=== PATIENT | female | born 1935 | race Caucasian/White ===

== ENCOUNTER 2022-08-23 06:41 | Inpatient (IN) ==
[2022-08-23] MEDS ORDERED: ONDANSETRON 4 MG/2 ML VIAL IV ONE ×2 (06:45→13:31)
[2022-08-23] MEDS ORDERED: fentaNYL 100 MCG/2 ML VIAL IV ONE ×3 (06:45→18:30)
--- NOTE | 2022-08-23 06:50 | Emergency Department Note ---
HPI <Jeanmarie Denney MD - Last Filed: 08/23/22 06:57> General Chief complaint: Fall Stated complaint: FALL Time Seen by Provider: 08/23/22 06:44 Source: patient and EMS Mode of arrival: ambulatory History of Present Illness HPI Narrative: Narrative: 87-year-old female brought in by EMS after having falling at home. She states she got caught in cables and tripped, landing on her left side. She denied any head strike or loss of consciousness. Patient presents with extreme pain to the right hip. Patient's past medical history is positive for COPD, hypertension and status post two-vessel CABG. Related Data Home Medications Medication Instructions Recorded Confirmed albuterol sulfate 2.5 mg/3 mL 2.5 mg IH TID 02/03/17 02/03/17 (0.083 %) solution for nebulization budesonide 0.5 mg/2 mL suspension 0.5 mg NEB Q12 02/03/17 02/03/17 for nebulization furosemide 20 mg tablet (Lasix) 20 mg PO DAILY 02/03/17 02/03/17 metoprolol succinate 25 mg 25 mg PO BID 02/03/17 02/03/17 tablet,extended release 24 hr omeprazole 20 mg tablet,delayed 20 mg PO DAILY 02/03/17 02/03/17 release potassium chloride 10 mEq 10 meq PO DAILY 02/03/17 02/03/17 tablet,extended release (Klor-Con) prednisolone acetate 1 % eye 1 gtt DAILY 02/03/17 02/03/17 drops,suspension Allergies Allergy/AdvReac Type Severity Reaction Status Date / Time Ether Allergy Unknown Unknown Verified 12/14/19 17:30 Review of Systems <Jeanmarie Denney MD - Last Filed: 08/23/22 06:57> ROS ROS Narrative: Narrative: All systems ED: reviewed and negative except as stated. PFSH <Jeanmarie Denney MD - Last Filed: 08/23/22 06:57> Narrative Patient History Narrative: Narrative: Medical/Surgical/Family History All Active Problems (Updated 12/14/19 @ 18:05 by ARIE Catalan) Chest pain (Acute) Atypical chest pain (Acute) Stable angina (Acute) Local reaction to bee sting (Acute) Social History Smoking Status: Former smoker Exam <Jeanmarie Denney MD - Last Filed: 08/23/22 06:57> Narrative Narrative: Narrative: General: Alert oriented x3, answers questions cogently. Pulmonary: Clear to auscultation equal bilaterally without rales rhonchi or wheezes. CV: Regular rate and rhythm without murmurs clicks rubs or gallops. Ortho: No external rotation or foreshortening but very tender to compression of the right hip. Otherwise all extremities have full range of motion without deformity neck is nontender both lateral and dorsal compression and ribs are nontender as well. Head appears to be atraumatic Course <Jeanmarie Denney MD - Last Filed: 08/23/22 06:57> Vital Signs Vital signs: Vital Signs Temperature 98.0 F 08/23/22 06:41 Pulse Rate 65 08/23/22 06:41 Respiratory Rate 22 08/23/22 06:41 Blood Pressure 153/43 08/23/22 06:41 Pulse Oximetry (%) 93 08/23/22 06:41 Oxygen Delivery Method Room Air 08/23/22 06:41 Temperature 98.0 F 08/23/22 06:41 Pulse Rate 67 08/23/22 11:16 Respiratory Rate 22 08/23/22 06:41 Blood Pressure 107/38 08/23/22 11:16 Pulse Oximetry (%) 100 08/23/22 11:16 Oxygen Delivery Method Room Air 08/23/22 06:41 <Dakota Amaya MD - Last Filed: 08/23/22 12:41> Consultations Consultation #1: I spoke to the orthopedic surgeon, Dr. Stratton. He asked me to get the hospitalist to admit but agreed to perform the surgery. Time: 12:33 Consultation #2: I spoke to the hospitalist, Dr. Horvath. He agreed to admit Time: 12:40 Vital Signs Vital signs: Vital Signs Temperature 98.0 F 08/23/22 06:41 Pulse Rate 65 08/23/22 06:41 Respiratory Rate 22 08/23/22 06:41 Blood Pressure 153/43 08/23/22 06:41 Pulse Oximetry (%) 93 08/23/22 06:41 Oxygen Delivery Method Room Air 08/23/22 06:41 Temperature 98.0 F 08/23/22 06:41 Pulse Rate 67 08/23/22 11:16 Respiratory Rate 22 08/23/22 06:41 Blood Pressure 107/38 08/23/22 11:16 Pulse Oximetry (%) 100 08/23/22 11:16 Oxygen Delivery Method Room Air 08/23/22 06:41 MDM <Jeanmarie Denney MD - Last Filed: 08/23/22 06:57> MDM Narrative Medical decision making narrative: Narrative: X-rays will be obtained and patient worked up for what appears to be a fractured femur. Patient was turned over to my colleague at 0700. Sepsis Sepsis Identified: No Lab Data 08/23/22 08:10 Labs: Lab Results 08/23/22 08/23/22 Range/Units 07:41 08:10 WBC 24.5 H (4.5-11.0) K/mcL RBC 4.72 (3.59-5.38) M/mcL Hgb 14.3 (11.2-15.7) g/dL Hct 49.1 H (34.1-44.9) % POC Hct 43.0 (36-48) MCV 104.0 H (80.0-100.0) fL MCH 30.3 (26.0-34.0) pg MCHC 29.1 L (31.0-36.0) g/dL RDW 13.2 (11.5-14.5) % Plt Count 254 (140-440) K/mcL MPV 10.5 (8.8-12.5) fL Immature Gran % (Auto) 0.7 H (0.0-0.5) % Neut % (Auto) 85.7 H (38.0-78.0) % Lymph % (Auto) 4.9 L (15.5-49.0) % [place] % (Auto) 8.0 (1.0-12.0) % Eos % (Auto) 0 (0.0-7.0) % Baso % (Auto) 0.7 (0.0-2.0) % Lymph # (Auto) 1.19 L (1.50-4.80) K/mcL [place] # (Auto) 1.95 H (0.10-0.90) K/mcL Eos # (Auto) 0.01 (0.00-0.70) K/mcL Baso # (Auto) 0.18 (0.00-0.30) K/mcL Immature Gran # 0.17 H (0.00-0.05) K/mcl Absolute Neutrophils 21.01 H (1.80-8.00) K/mcL POC Sodium 142 (133-145) POC Potassium 3.7 (3.3-5.1) POC Chloride 105 (96-108) POC Total CO2 26.0 (22-30) POC BUN 20 (6-20) POC Creatinine 0.9 (0.6-1.2) POC Glucose 126 H (70-105) POC WB Ioniz Calcium 1.12 L (1.16-1.32) <Dakota Amaya MD - Last Filed: 08/23/22 12:41> Lab Data Labs: Lab Results 08/23/22 08/23/22 Range/Units 07:41 08:10 WBC 24.5 H (4.5-11.0) K/mcL RBC 4.72 (3.59-5.38) M/mcL Hgb 14.3 (11.2-15.7) g/dL Hct 49.1 H (34.1-44.9) % POC Hct 43.0 (36-48) MCV 104.0 H (80.0-100.0) fL MCH 30.3 (26.0-34.0) pg MCHC 29.1 L (31.0-36.0) g/dL RDW 13.2 (11.5-14.5) % Plt Count 254 (140-440) K/mcL MPV 10.5 (8.8-12.5) fL Immature Gran % (Auto) 0.7 H (0.0-0.5) % Neut % (Auto) 85.7 H (38.0-78.0) % Lymph % (Auto) 4.9 L (15.5-49.0) % [place] % (Auto) 8.0 (1.0-12.0) % Eos % (Auto) 0 (0.0-7.0) % Baso % (Auto) 0.7 (0.0-2.0) % Lymph # (Auto) 1.19 L (1.50-4.80) K/mcL [place] # (Auto) 1.95 H (0.10-0.90) K/mcL Eos # (Auto) 0.01 (0.00-0.70) K/mcL Baso # (Auto) 0.18 (0.00-0.30) K/mcL Immature Gran # 0.17 H (0.00-0.05) K/mcl Absolute Neutrophils 21.01 H (1.80-8.00) K/mcL POC Sodium 142 (133-145) POC Potassium 3.7 (3.3-5.1) POC Chloride 105 (96-108) POC Total CO2 26.0 (22-30) POC BUN 20 (6-20) POC Creatinine 0.9 (0.6-1.2) POC Glucose 126 H (70-105) POC WB Ioniz Calcium 1.12 L (1.16-1.32) Radiology Data Radiology results reviewed: Yes I reviewed the patient's radiology results. Discharge Plan Patient/Caregiver Discharge Instructions Pt seen by BUSINESS SUPPORT/PA only: No Patient Disposition: Home, Self-Care Condition: Undetermined Follow up with: Gustavo Tinoco DO [Primary Care Provider] - Prescriptions: No Action albuterol sulfate 2.5 MG/3 ML Vial.Neb 2.5 mg IH TID potassium chloride [Klor-Con 10] 10 MEQ Tablet.Er 10 meq PO DAILY prednisolone acetate 1 GTT Bottle 1 gtt OD DAILY budesonide 0.5 MG/2 ML Ampul.Neb 0.5 mg NEB Q12 furosemide [Lasix] 20 MG Tablet 20 mg PO DAILY metoprolol succinate 25 MG Tab.Xl.24h 25 mg PO BID omeprazole 20 MG Tablet.Dr 20 mg PO DAILY
[2022-08-23 07:45] LABS: POC Calcium, Ionized 1.12 (1.16-1.32); POC Creatinine 0.9 (0.6-1.2); POC Potassium 3.7 (3.3-5.1)
[2022-08-23 08:52] LABS: Basophils # (Auto) 0.18 K/mcL (0.00-0.30); Basophils % (Auto) 0.7 % (0.0-2.0); Eosinophils # (Auto) 0.01 K/mcL (0.00-0.70); Eosinophils % (Auto) 0 % (0.0-7.0); Hematocrit 49.1 % (34.1-44.9); Hemoglobin 14.3 g/dL (11.2-15.7); Lymphocytes # (Auto) 1.19 K/mcL (1.50-4.80); Lymphocytes % (Auto) 4.9 % (15.5-49.0); Mean Corpuscular HGB Conc 29.1 g/dL (31.0-36.0); Mean Platelet Volume 10.5 fL (8.8-12.5); Monocytes # (Auto) 1.95 K/mcL (0.10-0.90); Neutrophils % (Auto) 85.7 % (38.0-78.0); Platelet Count 254 K/mcL (140-440); RBC 4.72 M/mcL (3.59-5.38); Red Cell Distribution Width 13.2 % (11.5-14.5); WBC 24.5 K/mcL (4.5-11.0)
--- NOTE | 2022-08-23 09:45 | XRay Report ---
CLINICAL INFORMATION: Trauma COMPARISON: None. FINDINGS: Sacroiliac and hip joints are normal in width and alignment without arthritic change. Mildly comminuted basicervical fracture of the right femoral neck appreciated with marked coxa vara angulation. The distal fragment is displaced anteriorly and superiorly. Soft tissue swelling over the fracture site. IMPRESSION: Mildly comminuted basicervical fracture of the right hip. Marked angulation Interpreted and Authenticated by: Obey Mar 08/23/22
[2022-08-23] MEDS ORDERED: morphine 4 MG/ML VIAL IV ONE ×2 (11:03→13:06)
--- NOTE | 2022-08-23 12:15 | Cat Scan Report ---
CLINICAL INFORMATION: Trauma COMPARISON: None. TECHNIQUE: 0.625 mm helical slices were obtained from the skull base through the superior T2 end plate. Following reconstruction, 2.5 mm sagittal, coronal and axial reformations , with and without disc space angling, were processed. The exam was reviewed at bone and soft tissue windows. The exam was performed using radiation dose optimization techniques including, but not limited to, automated exposure control, adjustment of the mA and/or kV according to patient size and use of iterative reconstruction technique. FINDINGS: Sagittal and coronal reformatted images show the cervical spine is anatomically aligned. There is no fracture or other osseous abnormality. The cervical cord is normal in contour and caliber without focal lesion. The soft tissues are significant for scattered thyroid nodules developed multiple adenomas. Moderate calcification seen in writing artery bifurcations. Severe bilateral TMJ degeneration noted. There is moderate left mastoiditis with opacification of the left mastoid air cells. At C2-3, mild broad disc protrusion mildly impinges the thecal sac At C3-4, mild broad disc protrusion mildly impinges the thecal sac results in moderate right recess narrowing possible exiting right C4 nerve root impingement. At C4-5, mild broad disc protrusion facet arthropathy result in mild central canal and moderate right IV foraminal narrowing with exiting right C5 nerve root impingement At C5-6, moderate broad disc spur complex results in moderate central canal and mild left IV foraminal narrowing. At C6-7 moderate broad disc protrusion results in mild central canal and moderate bilateral IV foraminal narrowing C7-T1 disc level is normal. IMPRESSION: 1. No fracture or posttraumatic change. 2. Multilevel degeneration. 3. Severe bilateral TMJ degeneration. 4. Mild left mastoiditis Interpreted and Authenticated by: Obey Mar 08/23/22
--- NOTE | 2022-08-23 12:15 | Cat Scan Report ---
CLINICAL INFORMATION: Trauma COMPARISON: None. TECHNIQUE: 2.5 mm helical slices were obtained in the skull base to vertex. Following reconstruction, axial reformatted images were reviewed at bone and parenchymal windows. The exam was performed using radiation dose optimization techniques including, but not limited to, automated exposure control, adjustment of the mA and/or kV according to patient size and use of iterative reconstruction technique. FINDINGS: The ventricles, sulci, fissures, and cisterns are symmetrically enlarged compatible with moderate age-related atrophy. No extra-axial fluid collections are identified. Moderate patchy chronic ischemic changes, in the deep cerebral white matter, are expected for age. There is no hemorrhage, mass effect, or edema. Bone windows show no osseous abnormality. IMPRESSION: Moderate and chronic ischemic changes in the deep cerebral white matter-expected for age. No acute findings Interpreted and Authenticated by: Obey Mar 08/23/22
[2022-08-23] MEDS ORDERED: IBUPROFEN 600 MG TABLET PO PRN (14:09)
[2022-08-23] MEDS ORDERED: ACETAMINOPHEN 325 MG TABLET PO PRN (14:09)
[2022-08-23] MEDS: morphine 4 MG/ML VIAL IV PRN (14:26)
[2022-08-23] MEDS ORDERED: NITROGLYCERIN 0.4 MG TAB.SUBL SL PRN (14:34)
--- NOTE | 2022-08-23 14:40 | Internal Med History&Physical ---
HPI History of Present Illness Patient information: Note initiated : 08/23/22 at 2:35 pm Service Date, if different from initiated Date: [] Patient: Belinda Crum a 87 y/o F admitted on 08/23/22 for FALL Right Hip Fracture. Chief Complaint: Mechanical fall Chief complaint: Mechanical fall History of present illness: Ms. Crum is a 87 year old F with a past medical history significant for CAD, COPD, and osteoporosis who presents to the hospital with a mechanical fall resulting in a mildly communicated cervical fracture of the right hip that was markedly angulated. The patient states that she tripped over some wires at home. She denies any prodromal symptoms. On arrival she was hemodynamically stable and afebrile. Trauma series of imaging was performed. Of note her white blood cell count was elevated at 24,000. Orthopedic surgery were notified. The hospitalist service was asked admit the patient for further management and evaluation. Review of Systems All systems: reviewed and no additional remarkable complaints except as stated Constitutional Constitutional: Present as per HPI EENT Eyes: Present as per HPI; Absent blurry vision Cardiovascular Cardiovascular: Present as per HPI; Absent chest pain, dyspnea, dyspnea on exertion, leg edema or palpatations Respiratory Respiratory: Present as per HPI; Absent cough, dyspnea, dyspnea on exertion, wheezing or stridor Gastrointestinal Gastrointestinal: Present as per HPI; Absent abdominal pain, diarrhea, dysphagia, hematemesis, melena, nausea or vomiting Musculoskeletal Musculoskeletal: Present as per HPI; Absent joint swelling, limited range of motion, muscle cramps, muscle weakness or myalgias Integumentary Integumentary: Present as per HPI; Absent erythema, new lesions, rash or wounds Neurological Neurological: Present as per HPI; Absent abnormal gait, behavioral changes, focal weakness, headache(s), loss of vision, numbness, sensory deficit or syncope Endocrine Endocrine: Absent change in body appearance, fatigue or heat intolerance Hematologic/Lymphatic Hematologic/Lymphatic: Present as per HPI PFSH PFSH All Active Problems (Updated 08/23/22 @ 12:42 by Dakota Amaya MD) Chest pain (Acute) Atypical chest pain (Acute) Stable angina (Acute) Local reaction to bee sting (Acute) Closed right hip fracture (Acute) Social History smoking status: Former smoker MEDS/ALLERGIES Home Medications and Allergies Home Medications Medication Instructions Recorded Confirmed Type albuterol sulfate 2.5 mg/3 mL 2.5 mg IH TID 02/03/17 02/03/17 History (0.083 %) solution for nebulization budesonide 0.5 mg/2 mL suspension 0.5 mg NEB Q12 02/03/17 02/03/17 History for nebulization furosemide 20 mg tablet (Lasix) 20 mg PO DAILY 02/03/17 08/23/22 History omeprazole 20 mg tablet,delayed 20 mg PO QAMAC 02/03/17 08/23/22 History release potassium chloride 10 mEq 10 meq PO DAILY 02/03/17 02/03/17 History tablet,extended release (Klor-Con) prednisolone acetate 1 % eye 1 gtt DAILY 02/03/17 08/23/22 History drops,suspension alendronate 70 mg tablet 70 mg PO WEEKLY 08/23/22 08/23/22 History atorvastatin 40 mg tablet 40 mg PO QHS 08/23/22 08/23/22 History ipratropium bromide 42 mcg (0.06 2 spray intranasal TID 08/23/22 08/23/22 History %) nasal spray isosorbide mononitrate 30 mg 30 mg PO QDAY 08/23/22 08/23/22 History tablet,extended release 24 hr metoprolol succinate 25 mg 25 mg PO BID 08/23/22 08/23/22 History tablet,extended release 24 hr nitroglycerin 0.4 mg sublingual 0.4 mg sublingual Q5M PRN angina 08/23/22 08/23/22 History tablet Allergies Allergy/AdvReac Type Severity Reaction Status Date / Time Ether Allergy Unknown Unknown Verified 12/14/19 17:30 EXAM Constitutional Vitals: Temp Pulse Resp BP Pulse Ox O2 Del Method 98.0 F 73 22 113/36 100 Room Air 08/23/22 13:58 08/23/22 13:58 08/23/22 13:58 08/23/22 13:58 08/23/22 13:58 08/23/22 06:41 General appearance: average body habitus Head Head exam: Present atraumatic, normal inspection and normocephalic Eye Eye exam: Present EOMI, normal appearance and PERRL; Absent conjunctival injection ENT ENT exam: Present normal exam; Absent mucous membranes dry Neck Neck exam: Present full ROM; Absent lymphadenopathy Respiratory Respiratory exam: Present normal respiratory exam and CTAB; Absent decreased breath sounds, respiratory distress or wheezes Cardiovascular Cardiovascular exam: Present normal rate and rhythm and RRR; Absent JVD GI/Abdominal GI/Abdominal exam: Present normal bowel sounds and soft; Absent diminished bowel sounds, distended, guarding, mass, rebound or tenderness Neurological Exam Neurological exam: Present alert, CN II-XII intact and oriented X3 Psychiatric Psychiatric exam: Present normal affect and normal mood Skin Skin exam: Present intact and warm; Absent erythema, pallor, petechiae or rash DATA Data Completed and Pending Labs: Labs from last 24 hours 08/23/22 08/23/22 08:10 07:41 WBC 24.5 H RBC 4.72 Hgb 14.3 Hct 49.1 H POC Hct 43.0 MCV 104.0 H MCH 30.3 MCHC 29.1 L RDW 13.2 Plt Count 254 MPV 10.5 Immature Gran % (Auto) 0.7 H Neut % (Auto) 85.7 H Lymph % (Auto) 4.9 L [place] % (Auto) 8.0 Eos % (Auto) 0 Baso % (Auto) 0.7 Lymph # (Auto) 1.19 L [place] # (Auto) 1.95 H Eos # (Auto) 0.01 Baso # (Auto) 0.18 Immature Gran # 0.17 H Absolute Neutrophils 21.01 H POC Sodium 142 POC Potassium 3.7 POC Chloride 105 POC Total CO2 26.0 POC BUN 20 POC Creatinine 0.9 POC Glucose 126 H POC WB Ioniz Calcium 1.12 L A/P Assessment and plan (1) Closed right hip fracture: Status: Acute Qualifiers: Encounter type: initial encounter Qualified Code(s): S72.001A - Fracture of unspecified part of neck of right femur, initial encounter for closed fracture Narrative A/P Narrative: The patient will be seen by orthopedic surgery and evaluated for surgical intervention. Medical comanagement will be performed via the hospital service. Medication reconciliation will be performed. We will continue her home inhalers. We will continue home metoprolol and atorvastatin in terms of her cardiac medications however hold home Lasix. Her white blood cell count is elevated at 24,000 and is unclear if this is the setting of hemoconcentration. She will get an empiric dose of ceftriaxone and will follow up on her chest x- ray and urine culture. Time Spent With Patient Time: Total time spent is greater than 50% in coordination of care (as documented) at patient's floor/unit and/or counseling patient: Subsequent: Total time with patient: 50 - 65 Minutes Critical Care Time: No
[2022-08-23] MEDS: 0.9 % SODIUM CHLORIDE 10 ML SYRINGE IV SCH ×2 (15:25→21:05)
[2022-08-23] MEDS: cefTRIAXone 1 GM VIAL IV SCH (15:51)
[2022-08-23] MEDS: ALBUTEROL SULFATE 2.5 MG/3 ML NEBULIZER IH SCH ×2 (15:51→21:17)
[2022-08-23] MEDS: IPRATROPIUM 0.06% NASAL SPRAY BOTTLE 30ML NAS SCH ×2 (15:53→22:08)
--- NOTE | 2022-08-23 16:12 | XRay Report ---
CLINICAL INFORMATION: Trauma COMPARISON: None. TECHNIQUE: Portable FINDINGS: Massive hiatal hernia noted. The heart is moderately enlarged. Remaining mediastinum is normal. Pulmonary vessels are mildly distended and there is mild peribronchial vascular edema. Small bilateral pleural effusions noted. No fracture or other posttraumatic change evident. IMPRESSION: No posttraumatic change. Mild CHF or volume overload Massive hiatal hernia Interpreted and Authenticated by: Obey Mar 08/23/22
[2022-08-23] MEDS ORDERED: ceFAZolin 2 GM in DEXTROSE 5% IN WATER 50 ML IV SCH ×2 (16:45→20:00)
--- NOTE | 2022-08-23 17:16 | Orthopedic Progress Note ---
SUBJECTIVE Subjective Patient information: Note initiated : 08/23/22 at 5:15 pm Service Date, if different from initiated Date: [] Patient: Belinda Crum 87 y/o F admitted on 08/23/22 for FALL Right Hip Fracture. Chief Complaint: [] Constitutional Vitals: Vital Signs Temp Pulse Resp BP Pulse Ox O2 Del Method O2 Flow Rate 99.1 F H 78 18 140/57 96 Nasal Cannula 1.5 08/23/22 16:00 08/23/22 16:00 08/23/22 16:00 08/23/22 16:00 08/23/22 16:00 08/23/22 16:00 08/23/22 16:00 Period Temp Pulse Resp BP Sys/Berg Pulse Ox O2 Del Method O2 Flow Rate Last 24 Hr 98.0 F-99.1 F 63-82 18-22 82-183/32-78 86-100 Nasal Cannula- Room Air 1.5-1.5 Intake and Output 08/23/22 08/23/22 08/23/22 03:59 11:59 19:59 Weight 140 lb 140 lb Patient Weight 08/24/22 03:59 Weight 140 lb Intake & Output: Intake & Output 08/23/22 08/23/22 08/23/22 03:59 11:59 19:59 Weight 140 lb 140 lb OBJ DATA Labs 08/23/22 08:10 Labs: Abnormal Lab Results 08/23/22 08/23/22 08:10 07:41 WBC 24.5 H Hct 49.1 H MCV 104.0 H MCHC 29.1 L Immature Gran % (Auto) 0.7 H Neut % (Auto) 85.7 H Lymph % (Auto) 4.9 L Lymph # (Auto) 1.19 L [place] # (Auto) 1.95 H Immature Gran # 0.17 H Absolute Neutrophils 21.01 H POC Glucose 126 H POC WB Ioniz Calcium 1.12 L Meds: Medications Acetaminophen (Acetaminophen 325 Mg Tablet) 650 mg PO Q6HP PRN; Protocol PRN Reason: Per Pain Protocol/Fever > 101 Albuterol Sulfate (Albuterol Sulfate 2.5 Mg/3 Ml Nebulizer) 2.5 mg IH TID RINA Last Admin: 08/23/22 15:51 Dose: 2.5 mg Alendronate Sodium (Alendronate Sodium 70 Mg Tablet) 70 mg PO Cullen@0730 COUNTS INCLUDE 234 BEDS AT THE [facility] Atorvastatin Calcium (Atorvastatin 40 Mg Tablet) 40 mg PO QHS COUNTS INCLUDE 234 BEDS AT THE [facility] Budesonide (Budesonide 0.5 Mg/2 Ml Ampul.Neb) 0.5 mg NEB Q12 COUNTS INCLUDE 234 BEDS AT THE [facility] Ceftriaxone Sodium (Ceftriaxone 1 Gm Vial) 1 gm IV Q24H COUNTS INCLUDE 234 BEDS AT THE [facility]; Protocol Last Admin: 08/23/22 15:51 Dose: 1 gm Docusate Sodium (Docusate Sodium 100 Mg Capsule) 100 mg PO BID COUNTS INCLUDE 234 BEDS AT THE [facility] Enoxaparin Sodium (Enoxaparin 40 Mg/0.4 Ml Syringe) 40 mg SQ DAILY COUNTS INCLUDE 234 BEDS AT THE [facility] Cefazolin Sodium 2 gm/ (Dextrose) 50 mls @ 100 mls/hr IV PREOP COUNTS INCLUDE 234 BEDS AT THE [facility]; Protocol Stop: 08/23/22 21:00 Ibuprofen (Ibuprofen 600 Mg Tablet) 600 mg PO QIDP PRN; Protocol PRN Reason: Per Pain Protocol/Fever > 101 Ipratropium [place] (Ipratropium 0.06% Nasal [place] Bottle 30ml) 2 spray MIGUEL TID COUNTS INCLUDE 234 BEDS AT THE [facility] Last Admin: 08/23/22 15:53 Dose: Not Given Isosorbide Mononitrate (Isosorbide Mononitrate 30 Mg Tab.Xl.24h) 30 mg PO QDAY COUNTS INCLUDE 234 BEDS AT THE [facility] Metoprolol Succinate (Metoprolol Succinate 25 Mg Tab.Xl.24h) 25 mg PO BID COUNTS INCLUDE 234 BEDS AT THE [facility] Morphine Sulfate (Morphine 4 Mg/Ml Vial) 4 mg IV Q4HP PRN; Protocol PRN Reason: Per Pain Protocol Last Admin: 08/23/22 14:26 Dose: 4 mg Nitroglycerin (Nitroglycerin 0.4 Mg Tab.Subl) 0.4 mg SL Q5M PRN PRN Reason: angina Omeprazole (Omeprazole 20 Mg Capsule) 20 mg PO ACB COUNTS INCLUDE 234 BEDS AT THE [facility] Ondansetron HCl (Ondansetron 4 Mg/2 Ml Vial) 4 mg IV Q6HP PRN PRN Reason: Nausea And Vomiting Oxycodone HCl (Oxycodone Hcl 5 Mg Tablet) 5 mg PO Q4HP PRN; Protocol PRN Reason: Per Pain Protocol Prednisolone Acetate (Prednisolone 1% Ophth Drops 1ml Bottle) 1 gtt OD DAILY COUNTS INCLUDE 234 BEDS AT THE [facility] Senna (Sennosides 1 Tablet) 2 tab PO HS COUNTS INCLUDE 234 BEDS AT THE [facility] Sodium Chloride (0.9 % Sodium Chloride 10 Ml Syringe) 10 ml IV Q8 COUNTS INCLUDE 234 BEDS AT THE [facility] Last Admin: 08/23/22 15:25 Dose: 10 ml A/P Assessment and plan (1) Closed right hip fracture: Assessment and plan: diagnosis is right hip fracture. Discussed with family and patient of the diagnosis and treatment options. Elected to proceed with operative fixation of right hip fracture. Status: Acute Qualifiers: Encounter type: initial encounter Qualified Code(s): S72.001A - Fracture of unspecified part of neck of right femur, initial encounter for closed fracture Time Spent With Patient Time: Total time spent is greater than 50% in coordination of care (as documented) at patient's floor/unit and/or counseling patient:
[2022-08-23] MEDS ORDERED: PROPOFOL 200 MG/20 ML VIAL IV ONE (18:30)
[2022-08-23] MEDS ORDERED: MAGNESIUM SULFATE 2 GM/50 ML BAG IV ONE (18:30)
[2022-08-23] MEDS ORDERED: LIDOCAINE HCL/PF 100 MG/5 ML SYRINGE IV ONE (18:30)
[2022-08-23] MEDS ORDERED: ROPIVACAINE HCL/PF 20 ML VIAL IJ ONE (18:30)
[2022-08-23] MEDS ORDERED: KETAMINE 50 MG/ML Syringe (ANEST) IV ONE (18:30)
[2022-08-23] MEDS ORDERED: GLYCOPYRROLATE 0.2 MG/ML VIAL IV ONE (18:30)
[2022-08-23] MEDS ORDERED: HYDROmorphone 1 MG/ML SYRINGE ONE (18:30)
[2022-08-23] MEDS ORDERED: ONDANSETRON 4 MG/2 ML VIAL ONE (18:30)
[2022-08-23] MEDS ORDERED: DEXAMETHASONE 10 MG/ML VIAL ONE (18:30)
[2022-08-23] MEDS ORDERED: TRANEXAMIC ACID 1,000 MG/10 ML VIAL ONE (18:30)
[2022-08-23] MEDS ORDERED: PHENYLephrine 1 MG/10 ML SYRINGE (ANEST) ONE (18:30)
[2022-08-23] MEDS ORDERED: TRANEXAMIC ACID 1,000 MG/10 ML VIAL IV ONE (19:46)
[2022-08-23] MEDS ORDERED: BENZOCAINE/MENTHOL 1 LOZENGE PO PRN ×2 (19:46→20:16)
[2022-08-23] MEDS ORDERED: oxyCODONE HCL 5 MG TABLET PO PRN (19:46)
--- NOTE | 2022-08-23 19:46 | Brief Operative Note ---
Brief Operative Note Date of procedure: 08/23/22 Pre-op diagnosis: right basicervicle hip fracture Post-op diagnosis: other (right reverse oblique intertrochanteric hip fracture) Procedure: operative fixation right peritrochanteric femur fracture Grafts/Implants: Yes Anesthesia: GETA Findings: reverse oblique intertrochanteric femur fracture Complications: none Surgeon: Cecelia Stratton [employer] Supervisor: Grady Tirado Estimated blood loss (cc): 100 Tourniquet Time (Minutes): 0 Specimens Removed/Pathology: none sent Condition: stable Disposition: PACU
[2022-08-23] MEDS: ACETAMINOPHEN 500 MG TABLET PO SCH (20:13)
[2022-08-23] MEDS ORDERED: LABETALOL 5 MG/ML ML IV PRN (20:16)
[2022-08-23] MEDS ORDERED: LACTATED RINGERS 250 ML IV PRN (20:16)
[2022-08-23] MEDS ORDERED: ACETAMINOPHEN 1,000 MG/100 ML BAG IV ONE (20:16)
[2022-08-23] MEDS ORDERED: IPRATROPIUM/ALBUTEROL 3 ML AMPUL.NEB NEB PRN (20:16)
[2022-08-23] MEDS ORDERED: METOPROLOL TARTRATE 5 MG/5 ML VIAL IV PRN (20:16)
[2022-08-23] MEDS ORDERED: NALOXONE HCL 0.4 MG/ML VIAL IV PRN (20:16)
[2022-08-23] MEDS ORDERED: fentaNYL 100 MCG/2 ML VIAL IV PRN (20:16)
[2022-08-23] MEDS ORDERED: METHOCARBAMOL 1,000 MG/10 ML VIAL IV PRN (20:16)
[2022-08-23] MEDS ORDERED: LACTATED RINGERS 1,000 ML IV SCH (20:30)
[2022-08-23] MEDS: BUDESONIDE 0.5 MG/2 ML AMPUL.NEB NEB SCH (21:17)
[2022-08-23] MEDS: LACTATED RINGERS 1,000 ML IV SCH (21:38)
[2022-08-23] MEDS: prednisoLONE 1% OPHTH DROPS 1ML BOTTLE OD SCH (22:12)
[2022-08-23] MEDS: ATORVASTATIN 40 MG TABLET PO SCH (23:54)
[2022-08-23] MEDS: DOCUSATE SODIUM 100 MG CAPSULE PO SCH (23:54)
[2022-08-23] MEDS: SENNOSIDES 1 TABLET PO SCH (23:55)
[2022-08-23] MEDS: METOPROLOL SUCCINATE 25 MG TAB.XL.24H PO SCH (23:55)
--- NOTE | 2022-08-24 01:59 | XRay Report ---
CLINICAL INFORMATION: ORIF intertrochanteric fracture right hip COMPARISON: Preoperative film 08/23/2022 FINDINGS: Sacroiliac and hip joints again show mild degeneration. The intertrochanteric fracture has been reduced to anatomic alignment and transfixed by gamma nail. Soft tissue swelling or surgical site seen as expected. IMPRESSION: ORIF intertrochanteric fracture right hip-anatomic alignment Interpreted and Authenticated by: Obey Mar 08/24/22
--- NOTE | 2022-08-24 02:00 | XRay Report ---
CLINICAL INFORMATION: Intertrochanteric fracture right hip COMPARISON: None. FINDINGS: Digital images from the OR show intertrochanteric fracture has been reduced to anatomic alignment and transfixed by long gamma nail. Alignment is anatomic. Soft tissue swelling seen over the fracture site. Total fluoroscopy time 1.2 minutes IMPRESSION: ORIF intertrochanteric fracture right hip anatomic alignment Interpreted and Authenticated by: Obey Mar 08/24/22
[2022-08-24] MEDS: ACETAMINOPHEN 500 MG TABLET PO SCH ×3 (03:26→23:28)
[2022-08-24] MEDS: 0.9 % SODIUM CHLORIDE 10 ML SYRINGE IV SCH ×3 (04:49→23:25)
[2022-08-24] MEDS: ONDANSETRON 4 MG/2 ML VIAL IV PRN ×2 (04:49→13:01)
[2022-08-24] MEDS: morphine 4 MG/ML VIAL IV PRN ×4 (04:54→23:45)
[2022-08-24] MEDS: oxyCODONE HCL 5 MG TABLET PO PRN ×3 (07:15→21:53)
[2022-08-24 07:25] LABS: Blood Urea Nitrogen 23 mg/dL (8-23); Calcium 9.4 mg/dL (8.6-10.4); Carbon Dioxide 28 mmol/L (22-30); Chloride 100 mmol/L (96-108); Glomerular Filtration Rate 51; Glucose 172 mg/dL (70-105)
--- NOTE | 2022-08-24 07:26 | Orthopedic Progress Note ---
SUBJECTIVE Subjective Patient information: Note initiated : 08/24/22 at 7:21 am Service Date, if different from initiated Date: [] Patient: Belinda Crum 87 y/o F admitted on 08/23/22 for FALL Right Hip Fracture. Chief Complaint: [Complains of back pain this AM, otherwise no acute events.] Constitutional Vitals: Vital Signs Temp Pulse Resp BP Pulse Ox O2 Del Method O2 Flow Rate 97.7 F 85 24 H 133/65 99 Nasal Cannula 2 08/24/22 03:02 08/24/22 03:02 08/24/22 03:02 08/24/22 03:02 08/24/22 03:02 08/24/22 03:02 08/24/22 03:02 Period Temp Pulse Resp BP Sys/Berg Pulse Ox O2 Del Method O2 Flow Rate Last 24 Hr 97.7 F-99.2 F 48-94 7-24 82-198/32-169 86-100 Nasal Cannula- Room Air 1.5-10 Intake and Output 08/23/22 08/24/22 08/24/22 19:59 03:59 11:59 Intake Total 1250 400 Output Total 1350 150 Balance -100 250 Weight 140 lb 147 lb 8 oz Intake & Output: Intake & Output 08/23/22 08/24/22 08/24/22 19:59 03:59 11:59 Intake Total 1250 400 Output Total 1350 150 Balance -100 250 Weight 140 lb 147 lb 8 oz Intake: IV 50 100 Ancef 2 gm In Dextrose 5% in 50 Water 50 ml @ 100 mls/hr IV PREOP [facility] Rx#:[id number] Oral 200 IV - Manual Only 1200 100 Output: Urine Catheter Amount 1000 150 Uretheral (Le) 500 Estimated Blood Loss 350 Other: Meal yogurt Percent of Meal Consumed 50% Feeding Ability Independent Urine Appearance Clear Clear Uretheral (Le) Clear Clear Urine Color Yellow Yellow Uretheral (Le) Bright Yellow Yellow Additional findings Additional findings: alert and appropriate right hip: dressing is dry and intact. distally shadowing through the dressing. normal appearance OBJ DATA Labs 08/23/22 08:10 08/24/22 06:05 Labs: Abnormal Lab Results 08/23/22 08/23/22 08:10 07:41 WBC 24.5 H Hct 49.1 H MCV 104.0 H MCHC 29.1 L Immature Gran % (Auto) 0.7 H Neut % (Auto) 85.7 H Lymph % (Auto) 4.9 L Lymph # (Auto) 1.19 L [place] # (Auto) 1.95 H Immature Gran # 0.17 H Absolute Neutrophils 21.01 H POC Glucose 126 H POC WB Ioniz Calcium 1.12 L Meds: Medications Acetaminophen (Acetaminophen 500 Mg Tablet) 1,000 mg PO Q8H [facility]; Protocol Last Admin: 08/24/22 03:26 Dose: 1,000 mg Albuterol Sulfate (Albuterol Sulfate 2.5 Mg/3 Ml Nebulizer) 2.5 mg IH TID [facility] Last Admin: 08/23/22 21:17 Dose: 2.5 mg Alendronate Sodium (Alendronate Sodium 70 Mg Tablet) 70 mg PO Cullen@0730 [facility] Atorvastatin Calcium (Atorvastatin 40 Mg Tablet) 40 mg PO QHS [facility] Last Admin: 08/23/22 23:54 Dose: 40 mg Budesonide (Budesonide 0.5 Mg/2 Ml Ampul.Neb) 0.5 mg NEB Q12 [facility] Last Admin: 08/23/22 21:17 Dose: 0.5 mg Ceftriaxone Sodium (Ceftriaxone 1 Gm Vial) 1 gm IV Q24H [facility]; Protocol Last Admin: 08/23/22 15:51 Dose: 1 gm Docusate Sodium (Docusate Sodium 100 Mg Capsule) 100 mg PO BID [facility] Last Admin: 08/23/22 23:54 Dose: 100 mg Enoxaparin Sodium (Enoxaparin 40 Mg/0.4 Ml Syringe) 40 mg SQ DAILY [facility] Lactated Ringer's (Lactated Ringers) 1,000 mls @ 75 mls/hr IV .[id number] [facility] Last Admin: 08/23/22 21:38 Dose: 75 mls/hr Ipratropium [place] (Ipratropium 0.06% Nasal [place] Bottle 30ml) 2 spray MIGUEL TID [facility] Last Admin: 08/23/22 22:08 Dose: Not Given Isosorbide Mononitrate (Isosorbide Mononitrate 30 Mg Tab.Xl.24h) 30 mg PO QDAY [facility] Methocarbamol (Methocarbamol 500 Mg Tablet) 500 mg PO TIDP PRN PRN Reason: Muscle Spasm Metoprolol Succinate (Metoprolol Succinate 25 Mg Tab.Xl.24h) 25 mg PO BID [facility] Last Admin: 08/23/22 23:55 Dose: 25 mg Morphine Sulfate (Morphine 4 Mg/Ml Vial) 4 mg IV Q4HP PRN; Protocol PRN Reason: Per Pain Protocol Last Admin: 08/24/22 04:54 Dose: 4 mg Nitroglycerin (Nitroglycerin 0.4 Mg Tab.Subl) 0.4 mg SL Q5M PRN PRN Reason: angina Omeprazole (Omeprazole 20 Mg Capsule) 20 mg PO ACB [facility] Ondansetron HCl (Ondansetron 4 Mg/2 Ml Vial) 4 mg IV Q6HP PRN PRN Reason: Nausea And Vomiting Last Admin: 08/24/22 04:49 Dose: 4 mg Oxycodone HCl (Oxycodone Hcl 5 Mg Tablet) 5 mg PO Q4HP PRN; Protocol PRN Reason: Per Pain Protocol Prednisolone Acetate (Prednisolone 1% Ophth Drops 1ml Bottle) 1 gtt OD DAILY [facility] Last Admin: 08/23/22 22:12 Dose: 1 gtt Senna (Sennosides 1 Tablet) 2 tab PO HS [facility] Last Admin: 08/23/22 23:55 Dose: 2 tab Sodium Chloride (0.9 % Sodium Chloride 10 Ml Syringe) 10 ml IV Q8 [facility] Last Admin: 08/24/22 04:49 Dose: Not Given Throat Lozenges (Benzocaine/Menthol 1 Lozenge) 1 lozenge PO PRN PRN PRN Reason: Sore Throat A/P Assessment and plan (1) Closed right hip fracture: Assessment and plan: POD 1 s/p operative fixation of right reverse oblique intertrochanteric femur fracture -- 50% weight bearing --PT/OT --oral pain meds --regular diet --back pain- monitor, was in awkward position for most of yesterday. today sit in chair, mobilize --prophy: IS, scd's, lovenox, mobilization --dispo: pending but likely SNF as she lives alone Status: Acute Qualifiers: Encounter type: initial encounter Qualified Code(s): S72.001A - Fracture of unspecified part of neck of right femur, initial encounter for closed fracture Time Spent With Patient Time: Total time spent is greater than 50% in coordination of care (as documented) at patient's floor/unit and/or counseling patient:
[2022-08-24 07:27] LABS: Basophils # (Auto) 0.01 K/mcL (0.00-0.30); Basophils % (Auto) 0.1 % (0.0-2.0); Eosinophils # (Auto) 0 K/mcL (0.00-0.70); Eosinophils % (Auto) 0 % (0.0-7.0); Hematocrit 36.1 % (34.1-44.9); Hemoglobin 11.5 g/dL (11.2-15.7); Lymphocytes # (Auto) 0.62 K/mcL (1.50-4.80); Lymphocytes % (Auto) 4.1 % (15.5-49.0); Mean Corpuscular HGB Conc 31.9 g/dL (31.0-36.0); Mean Platelet Volume 10.8 fL (8.8-12.5); Monocytes # (Auto) 1.58 K/mcL (0.10-0.90); Monocytes % (Auto) 10.6 % (1.0-12.0); Neutrophils % (Auto) 84.7 % (38.0-78.0); Platelet Count 175 K/mcL (140-440); RBC 3.88 M/mcL (3.59-5.38); Red Cell Distribution Width 13.8 % (11.5-14.5); WBC 14.9 K/mcL (4.5-11.0)
--- NOTE | 2022-08-24 07:46 | Consultation ---
DATE OF CONSULTATION: 08/23/2022 REASON FOR CONSULTATION: Right hip fracture. DATE OF CONSULTATION: 08/23/2022 CONSULTING PROVIDER: Dr. Jeanmarie Denney, ER at [facility]. HISTORY OF PRESENT ILLNESS: The patient is an 87-year-old female who presented with a mechanical fall early this morning. She has significant medical history to include coronary artery disease and COPD, osteoporosis, requiring home oxygen use. She was unable to ambulate thereafter and was brought to the emergency department for further evaluation and treatment. She has been admitted to the hospitalist. On evaluation, she complains only of right hip pain. She has an obvious deformity. PAST MEDICAL HISTORY: Significant for COPD, coronary artery disease, osteoporosis. ALLERGIES: ETHER. MEDICATIONS: 1. Metoprolol. 2. Nitroglycerin. 3. Isosorbide mononitrate. 4. Ipratropium. 5. Statin. 6. Alendronate. 7. Prednisolone eyedrops. 8. Potassium. 9. Omeprazole. 10. Furosemide. 11. Albuterol. 12. Another nebulizer treatment. SOCIAL HISTORY: She resides local, lives by herself. She typically can do most things on her own. She has family that lives in [place]. They do accompany her today. REVIEW OF SYSTEMS: Otherwise, negative other than mentioned in HPI. PHYSICAL EXAMINATION: GENERAL: The patient is alert and oriented, interactive and appropriate. She is in no acute distress. VITAL SIGNS: She is afebrile with temperature of 99.1. Heart rate 78, blood pressure 140/57, saturating 96% on 1.5 liters nasal cannula. EXTREMITIES: The patient has isolated injury to the right lower extremity with obvious deformity. She is in an almost lying position with the right hip flexed, internally rotated. The skin is intact. She has no deformity about the knee or ankle joint effusion. The foot is warm and well perfused. She does endorse (crinkling in her toes and foot); however, sensation to gross touch is intact. Able to flex ankle as well as toes. LABORATORY DATA: Shows elevated white count of 24.5 with left shift at 85%. She has H and H of 14.3 and 49.1, platelet count is 254. She has a chemistry with a glucose of 126, creatinine of 0.9. IMAGING: She has plain radiographs of her pelvis and hip, which demonstrates a basicervical displaced femoral neck fracture. ASSESSMENT AND PLAN: The patient is an 87-year-old female who has an acute fall with a displaced right basicervical femoral neck fracture. She has an obvious deformity. I discussed and reviewed this with her daughter as well as her. I discussed options to include operative treatment, which is my recommendation. I discussed what this will entail. I discussed the risks and benefits of surgery as well as expectations properly. I do think this would be better for pain control as well as mobilization and hygiene. I did discuss that these can affect the patient's overall functional level down from what it typically is, which can be relatively difficult to recover from long-term to get back to baseline. They do understand. They want to proceed. Plan will be for operative fixation of right hip fracture. CARMELITA:giselle Job ID: [id number] Doc ID: [id number] Cecelia Stratton MD MTDD
--- NOTE | 2022-08-24 07:49 | Operative Note ---
DATE OF OPERATION: 08/23/2022 PREOPERATIVE DIAGNOSIS: Right basicervical femoral neck fracture. POSTOPERATIVE DIAGNOSIS: Right reverse oblique intertrochanteric femur fracture. PROCEDURE PERFORMED: Operative fixation with cephalomedullary implant of right reverse oblique intertrochanteric femur fracture. SURGEON: Cecelia Stratton MD NEIGHBORHOOD PLANNER: Grady Tirado PA-C. The assistance of the PA was required for the safe and efficient completion of the entire case. The expertise and technical skill of this provider were required throughout the case. The PA assisted with preoperative coordination, intraoperative retraction, limb manipulation, wound closure, dressing application, as well as postoperative documentation and care coordination. ANESTHESIA: General. IV FLUIDS: 800 mL lactated Ringer's. ESTIMATED BLOOD LOSS: Less than 100 mL. ANTIBIOTICS: 2 grams Ancef. IMPLANTS: Marisela long gamma 13 x 380 two distal interlocks, one lag screw. INTRAOPERATIVE COMPLICATIONS: None apparent. PATHOLOGY/LAB: None. INDICATION FOR PROCEDURE: The patient is an 87-year-old female who had a ground level fall at home earlier today. She was brought to the Emergency Department for further evaluation and treatment. I discussed this with her and her family regarding treatment options. I did recommend operative treatment. I think this will improve her pain control, mobility as well as hygiene and improve mobilization long-term. There was risks of the surgery and long-term does have a bit of a sequela as a level of function decreased by 1 level typically speaking. This was all reviewed with them. I discussed the fracture will collapse over time given the construct we used to fix it. They understand this. They wished to proceed with surgery. DESCRIPTION OF PROCEDURE: Patient was met in the preoperative holding area, where site was verified and marked with the patient's input. She was taken to the operating room where she underwent successful general anesthesia. She was placed on the [place] table with padded perineal post. Bilateral feet placed in padded boots. The left lower extremity is in the down position, placed in line traction of the right lower extremity in a bit of internal rotation. Radiographs were taken demonstrating a reverse oblique intertrochanteric femur fracture rather then the basicervical femur fracture. With manipulation of the fracture to get it nearly completely aligned; however, is a bit translated on the lateral with the distal fragment anterior as well as translated medially. Right hip was then prepped and draped in the usual sterile fashion with ChloraPrep. Surgical timeout was performed to verify the patient's identity, correct procedure being performed, and correct extremity being operated on. Everybody was in agreement. Isolated the level of the fracture with a guidewire. We made a small, approximately 4-5 cm incision over the lateral aspect of the femur. Skin was sharply incised. Dissection was taken down to the IT band. The IT band was incised for approximately 3-4 cm. We placed a bone hook over the top of the femur and pulled the distal fragment laterally as well as palpate the fracture line and then reduced it on the anterior posterior direction as well. I did slightly tweaked the rotation as well as traction to reduce the fracture as best as possible. Overall, AP and lateral appeared to be adequate. At this point, gain access to the tip of the greater trochanter with a stab incision 2-1/2 fingerbreadths proximal to the tip of the greater trochanter. A guidewire was placed at the tip of the greater trochanter on the AP and at the anterior middle one-third junction on the lateral. The guidepin was placed. The incision was enlarged down to the tip of the greater trochanter incising the abductors. This was created in line with the fibers with clean 15 blade. Utilizing the curved awl gain access into the canal. This was changed out for a ball-tipped guidewire with a slight bend on the tip. It was placed in the center position distally in the femur, verified both on AP and lateral. This was measured and measured just around 400. I did want to keep this a bit shorter as it was all the way down to the femur. Thus a 380 was selected. Her canal was rather capacious thus elected to proceed with beginning reamer after entry reamer to gain access to canal 13.5 mm. Utilizing 13.5 reamer, reamed it and then 14.5 without significant chatter. The nail was then placed in an atraumatic fashion. It was placed so that the lag screw was going to be in the middle to the inferior aspect of the femoral neck itself. The aiming arm was utilized to place our sleeve and a guidewire on the lateral cortex of the femur. The guidewire position was verified both on AP and lateral was near center-center position. It was then measured and then drilled for 100 mm. This was then removed and initially placed our lag screw and verified both on AP and lateral to be subchondral and it was flush with the lateral cortex. Set screw was placed, backed off 1/4 turn. The construct was then removed. I did place an anti-rotational wire prior to placing the screw and drilling. With the aiming arm removed, AP, lateral completed, demonstrating adequate reduction of the fracture itself, I was happy with the overall construct. Thus, two distal interlocks were then placed via perfect [place] technique. At this point, I irrigated the wounds with IrriSept as well as normal irrigation. The IT band was closed with a #1 Vicryl in an interrupted fashion. Subcutaneous tissue was closed in layered fashion with 2-0 and 3-0 Vicryl and the skin was closed with tony. The distal interlock screws were closed with tony. The hip was then cleaned and dried. We placed a silver dressing on the proximal incisions and Xeroform, 4 x 4 and Medipore tape to secure the dressing. The patient awoke from anesthesia and was transferred to PACU in stable condition. POSTOPERATIVE PLAN: The patient will be admitted back to the floor for postoperative recovery. She will be 50% weightbearing for the first 4-6 weeks. DLW:shawn Job ID: [id number] Doc ID: [id number] Cecelia Stratton MD [facility]
[2022-08-24] MEDS: BUDESONIDE 0.5 MG/2 ML AMPUL.NEB NEB SCH ×2 (08:22→21:12)
[2022-08-24] MEDS: ALBUTEROL SULFATE 2.5 MG/3 ML NEBULIZER IH SCH ×3 (08:22→21:12)
[2022-08-24] MEDS ORDERED: ENOXAPARIN 40 MG/0.4 ML SYRINGE SQ SCH (09:00)
--- NOTE | 2022-08-24 09:03 | Internal Med Progress Note ---
SUBJECTIVE Subjective Patient information: Note initiated : 08/24/22 at 9:01 am Service Date, if different from initiated Date: [] Patient: Belinda Crum 87 y/o F admitted on 08/23/22 for FALL Right Hip Fracture. Chief Complaint: [Fall] Principal diagnosis: Hip fracture Interval history: The patient was resting comfortably in bed and surrounded with family. She is scheduled to go to the OR at this afternoon. Constitutional Vitals: Vital Signs Temp Pulse Resp BP Pulse Ox O2 Del Method O2 Flow Rate 97.7 F 72 24 H 133/65 99 Nasal Cannula 2 08/24/22 03:02 08/24/22 08:38 08/24/22 08:38 08/24/22 03:02 08/24/22 08:38 08/24/22 08:38 08/24/22 08:38 Period Temp Pulse Resp BP Sys/Berg Pulse Ox O2 Del Method O2 Flow Rate Last 24 Hr 97.7 F-99.2 F 48-94 7-24 82-198/34-169 86-100 Nasal Cannula- Room Air 1.5-10 Intake and Output 08/23/22 08/24/22 08/24/22 19:59 03:59 11:59 Intake Total 1250 400 Output Total 1350 150 Balance -100 250 Weight 63.503 kg 66.905 kg Intake & Output: Intake & Output 08/23/22 08/24/22 08/24/22 19:59 03:59 11:59 Intake Total 1250 400 Output Total 1350 150 Balance -100 250 Weight 63.503 kg 66.905 kg Intake: IV 50 100 Ancef 2 gm In Dextrose 5% in 50 Water 50 ml @ 100 mls/hr IV PREOP [facility] Rx#:[id number] Oral 200 IV - Manual Only 1200 100 Output: Urine Catheter Amount 1000 150 Uretheral (Le) 500 Estimated Blood Loss 350 Other: Meal yogurt Percent of Meal Consumed 50% Feeding Ability Independent Urine Appearance Clear Clear Uretheral (Le) Clear Clear Urine Color Yellow Yellow Uretheral (Le) Bright Yellow Yellow Head Head exam: Present atraumatic and normal inspection Eye Eye exam: Present normal appearance ENT ENT exam: Present mucous membranes moist, normal exam and normal external ear exam Neck Neck exam: Present normal inspection Respiratory Respiratory exam: Present normal respiratory exam Cardiovascular Cardiovascular exam: Present normal rate and rhythm GI/Abdominal GI/Abdominal exam: Present normal bowel sounds Back Exam Back exam: Present normal inspection Neurological Exam Neurological exam: Present alert and oriented X3 Skin Skin exam: Present intact and warm OBJ DATA Labs 08/24/22 06:05 08/24/22 06:05 Labs: Abnormal Lab Results 08/24/22 08/24/22 08/23/22 06:05 06:05 08:10 WBC 14.9 H 24.5 H Hct 49.1 H MCV 104.0 H MCHC 29.1 L Immature Gran % (Auto) 0.7 H Neut % (Auto) 84.7 H 85.7 H Lymph % (Auto) 4.1 L 4.9 L Lymph # (Auto) 0.62 L 1.19 L [place] # (Auto) 1.58 H 1.95 H Immature Gran # 0.08 H 0.17 H Absolute Neutrophils 12.65 H 21.01 H Glucose 172 H POC Glucose POC WB Ioniz Calcium 08/23/22 07:41 WBC Hct MCV MCHC Immature Gran % (Auto) Neut % (Auto) Lymph % (Auto) Lymph # (Auto) [place] # (Auto) Immature Gran # Absolute Neutrophils Glucose POC Glucose 126 H POC WB Ioniz Calcium 1.12 L Meds: Medications Acetaminophen (Acetaminophen 500 Mg Tablet) 1,000 mg PO Q8H [facility]; Protocol Last Admin: 08/24/22 03:26 Dose: 1,000 mg Albuterol Sulfate (Albuterol Sulfate 2.5 Mg/3 Ml Nebulizer) 2.5 mg IH TID [facility] Last Admin: 08/24/22 08:22 Dose: 2.5 mg Alendronate Sodium (Alendronate Sodium 70 Mg Tablet) 70 mg PO Cullen@0730 [facility] Atorvastatin Calcium (Atorvastatin 40 Mg Tablet) 40 mg PO QHS [facility] Last Admin: 08/23/22 23:54 Dose: 40 mg Budesonide (Budesonide 0.5 Mg/2 Ml Ampul.Neb) 0.5 mg NEB Q12 [facility] Last Admin: 08/24/22 08:22 Dose: 0.5 mg Ceftriaxone Sodium (Ceftriaxone 1 Gm Vial) 1 gm IV Q24H [facility]; Protocol Last Admin: 08/23/22 15:51 Dose: 1 gm Docusate Sodium (Docusate Sodium 100 Mg Capsule) 100 mg PO BID [facility] Last Admin: 08/23/22 23:54 Dose: 100 mg Enoxaparin Sodium (Enoxaparin 40 Mg/0.4 Ml Syringe) 40 mg SQ DAILY [facility] Lactated Ringer's (Lactated Ringers) 1,000 mls @ 75 mls/hr IV .[id number] [facility] Last Admin: 08/23/22 21:38 Dose: 75 mls/hr Ipratropium [place] (Ipratropium 0.06% Nasal [place] Bottle 30ml) 2 spray MIGUEL TID [facility] Last Admin: 08/23/22 22:08 Dose: Not Given Isosorbide Mononitrate (Isosorbide Mononitrate 30 Mg Tab.Xl.24h) 30 mg PO QDAY [facility] Methocarbamol (Methocarbamol 500 Mg Tablet) 500 mg PO TIDP PRN PRN Reason: Muscle Spasm Metoprolol Succinate (Metoprolol Succinate 25 Mg Tab.Xl.24h) 25 mg PO BID [facility] Last Admin: 08/23/22 23:55 Dose: 25 mg Morphine Sulfate (Morphine 4 Mg/Ml Vial) 4 mg IV Q4HP PRN; Protocol PRN Reason: Per Pain Protocol Last Admin: 08/24/22 04:54 Dose: 4 mg Nitroglycerin (Nitroglycerin 0.4 Mg Tab.Subl) 0.4 mg SL Q5M PRN PRN Reason: angina Omeprazole (Omeprazole 20 Mg Capsule) 20 mg PO ACB [facility] Ondansetron HCl (Ondansetron 4 Mg/2 Ml Vial) 4 mg IV Q6HP PRN PRN Reason: Nausea And Vomiting Last Admin: 08/24/22 04:49 Dose: 4 mg Oxycodone HCl (Oxycodone Hcl 5 Mg Tablet) 5 mg PO Q4HP PRN; Protocol PRN Reason: Per Pain Protocol Last Admin: 08/24/22 07:15 Dose: 5 mg Prednisolone Acetate (Prednisolone 1% Ophth Drops 1ml Bottle) 1 gtt OD DAILY [facility] Last Admin: 08/23/22 22:12 Dose: 1 gtt Senna (Sennosides 1 Tablet) 2 tab PO HS [facility] Last Admin: 08/23/22 23:55 Dose: 2 tab Sodium Chloride (0.9 % Sodium Chloride 10 Ml Syringe) 10 ml IV Q8 [facility] Last Admin: 08/24/22 04:49 Dose: Not Given Throat Lozenges (Benzocaine/Menthol 1 Lozenge) 1 lozenge PO PRN PRN PRN Reason: Sore Throat A/P Assessment and plan (1) Closed right hip fracture: Status: Acute Qualifiers: Encounter type: initial encounter Qualified Code(s): S72.001A - Fract ure of unspecified part of neck of right femur, initial encounter for closed fracture Narrative A/P Narrative: The patient will be seen by orthopedic surgery and evaluated for surgical intervention. Medical comanagement will be performed via the hospital service. Medication reconciliation will be performed. We will continue her home inhalers. We will continue home metoprolol and atorvastatin in terms of her cardiac medications however hold home Lasix. Her white blood cell count is elevated at 24,000 and is unclear if this is the setting of hemoconcentration. She will get an empiric dose of ceftriaxone and will follow up on her chest x- ray and urine culture. 08/24: The patient will be scheduled for OR this afternoon. Postop care per orthopedic surgery. She will be assessed by PT/OT regarding disposition. Time Spent With Patient Time: Total time spent is greater than 50% in coordination of care (as documented) at patient's floor/unit and/or counseling patient: Subsequent: Total time with patient: 25 - 34 minutes Critical Care Time: No QUALITY VTE Deep Vein Thrombosis/Pulmonary Embolism Present on Admission: No
[2022-08-24] MEDS: cefTRIAXone 1 GM VIAL IV SCH (09:07)
[2022-08-24] MEDS: OMEPRAZOLE 20 MG CAPSULE PO SCH (09:07)
[2022-08-24] MEDS: METOPROLOL SUCCINATE 25 MG TAB.XL.24H PO SCH ×2 (09:54→21:55)
[2022-08-24] MEDS: ISOSORBIDE MONONITRATE 30 MG TAB.XL.24H PO SCH (10:15)
[2022-08-24] MEDS: DOCUSATE SODIUM 100 MG CAPSULE PO SCH ×2 (10:18→21:53)
[2022-08-24] MEDS: METHOCARBAMOL 500 MG TABLET PO PRN (11:42)
[2022-08-24] MEDS: IPRATROPIUM 0.06% NASAL SPRAY BOTTLE 30ML NAS SCH ×2 (12:01→17:27)
[2022-08-24] MEDS: LACTATED RINGERS 1,000 ML IV SCH ×2 (12:02→16:15)
[2022-08-24] MEDS: prednisoLONE 1% OPHTH DROPS 1ML BOTTLE OD SCH (12:40)
[2022-08-24] MEDS: SENNOSIDES 1 TABLET PO SCH (21:54)
[2022-08-24] MEDS: ATORVASTATIN 40 MG TABLET PO SCH (21:55)
[2022-08-24] MEDS: ENOXAPARIN 40 MG/0.4 ML SYRINGE SQ SCH (23:28)
[2022-08-25] MEDS: LACTATED RINGERS 1,000 ML IV SCH ×2 (02:10→05:01)
[2022-08-25] MEDS: IPRATROPIUM 0.06% NASAL SPRAY BOTTLE 30ML NAS SCH ×2 (02:10→08:32)
[2022-08-25] MEDS: ACETAMINOPHEN 500 MG TABLET PO SCH (05:01)
--- NOTE | 2022-08-25 07:11 | Orthopedic Progress Note ---
SUBJECTIVE Subjective Patient information: Note initiated : 08/25/22 at 7:09 am Service Date, if different from initiated Date: [] Patient: Belinda Crum 87 y/o F admitted on 08/23/22 for FALL Right Hip Fracture. Chief Complaint: [No acute issues overnight.] Principal diagnosis: Hip fracture Constitutional Vitals: Vital Signs Temp Pulse Resp BP Pulse Ox O2 Del Method O2 Flow Rate 98.2 F 86 14 117/46 95 Nasal Cannula 2 08/25/22 04:00 08/25/22 04:00 08/25/22 04:00 08/25/22 04:00 08/25/22 04:00 08/25/22 04:00 08/25/22 04:00 Period Temp Pulse Resp BP Sys/Berg Pulse Ox O2 Del Method O2 Flow Rate Last 24 Hr 97.7 F-98.2 F 54-88 14-24 107-140/46-65 91-100 Nasal Cannula- Room Air 1-2 Intake and Output 08/24/22 08/25/22 08/25/22 19:59 03:59 11:59 Intake Total 240 1078 Output Total 250 125 Balance -10 -125 1078 Weight 147 lb 8 oz 147 lb 4 oz Intake & Output: Intake & Output 08/24/22 08/25/22 08/25/22 19:59 03:59 11:59 Intake Total 240 1078 Output Total 250 125 Balance -10 -125 1078 Weight 147 lb 8 oz 147 lb 4 oz Intake: IV 958 Lactated Ringers 1,000 ml @ 75 958 mls/hr IV .[id number] [facility] Rx#: [id number] Oral 240 120 Output: Urine Catheter Amount 250 Uretheral (Le) 250 Void Amount 125 Other: Meal Lunch Percent of Meal Consumed 25% Feeding Ability Independent Urine Appearance Clear Urine Color Dark Yellow Uretheral (Le) Yellow Additional findings Additional findings: asleep this AM but does answer questions to some degree Right hip: silver dressing is clean/dry intact. dry dressing over lateral knee with no new shadow drainage. foot warm well perfused. OBJ DATA Labs 08/24/22 06:05 08/24/22 06:05 Labs: Abnormal Lab Results 08/24/22 08/24/22 08/23/22 06:05 06:05 08:10 WBC 14.9 H 24.5 H Hct 49.1 H MCV 104.0 H MCHC 29.1 L Immature Gran % (Auto) 0.7 H Neut % (Auto) 84.7 H 85.7 H Lymph % (Auto) 4.1 L 4.9 L Lymph # (Auto) 0.62 L 1.19 L Rogers # (Auto) 1.58 H 1.95 H Immature Gran # 0.08 H 0.17 H Absolute Neutrophils 12.65 H 21.01 H Glucose 172 H POC Glucose POC WB Ioniz Calcium 08/23/22 07:41 WBC Hct MCV MCHC Immature Gran % (Auto) Neut % (Auto) Lymph % (Auto) Lymph # (Auto) Rogers # (Auto) Immature Gran # Absolute Neutrophils Glucose POC Glucose 126 H POC WB Ioniz Calcium 1.12 L Meds: Medications Acetaminophen (Acetaminophen 500 Mg Tablet) 1,000 mg PO Q8H [facility]; Protocol Last Admin: 08/25/22 05:01 Dose: 1,000 mg Albuterol Sulfate (Albuterol Sulfate 2.5 Mg/3 Ml Nebulizer) 2.5 mg IH TID [facility] Last Admin: 08/24/22 21:12 Dose: 2.5 mg Alendronate Sodium (Alendronate Sodium 70 Mg Tablet) 70 mg PO Cullen@0730 RINA Atorvastatin Calcium (Atorvastatin 40 Mg Tablet) 40 mg PO QHS [facility] Last Admin: 08/24/22 21:55 Dose: 40 mg Budesonide (Budesonide 0.5 Mg/2 Ml Ampul.Neb) 0.5 mg NEB Q12 RINA Last Admin: 08/24/22 21:12 Dose: 0.5 mg Ceftriaxone Sodium (Ceftriaxone 1 Gm Vial) 1 gm IV Q24H [facility]; Protocol Last Admin: 08/24/22 09:07 Dose: 1 gm Docusate Sodium (Docusate Sodium 100 Mg Capsule) 100 mg PO BID [facility] Last Admin: 08/24/22 21:53 Dose: 100 mg Enoxaparin Sodium (Enoxaparin 40 Mg/0.4 Ml Syringe) 40 mg SQ DAILY [facility] Last Admin: 08/24/22 23:28 Dose: 40 mg Lactated Ringer's (Lactated Ringers) 1,000 mls @ 75 mls/hr IV .[id number] [facility] Last Admin: 08/25/22 05:01 Dose: 75 mls/hr Ipratropium [place] (Ipratropium 0.06% Nasal [place] Bottle 30ml) 2 spray MIGUEL TID [facility] Last Admin: 08/25/22 02:10 Dose: Not Given Isosorbide Mononitrate (Isosorbide Mononitrate 30 Mg Tab.Xl.24h) 30 mg PO QDAY [facility] Last Admin: 08/24/22 10:15 Dose: 30 mg Methocarbamol (Methocarbamol 500 Mg Tablet) 500 mg PO TIDP PRN PRN Reason: Muscle Spasm Last Admin: 08/24/22 11:42 Dose: 500 mg Metoprolol Succinate (Metoprolol Succinate 25 Mg Tab.Xl.24h) 25 mg PO BID [facility] Last Admin: 08/24/22 21:55 Dose: 25 mg Nitroglycerin (Nitroglycerin 0.4 Mg Tab.Subl) 0.4 mg SL Q5M PRN PRN Reason: angina Omeprazole (Omeprazole 20 Mg Capsule) 20 mg PO ACB [facility] Last Admin: 08/24/22 09:07 Dose: 20 mg Ondansetron HCl (Ondansetron 4 Mg/2 Ml Vial) 4 mg IV Q6HP PRN PRN Reason: Nausea And Vomiting Last Admin: 08/24/22 13:01 Dose: 4 mg Oxycodone HCl (Oxycodone Hcl 5 Mg Tablet) 5 mg PO Q4HP PRN; Protocol PRN Reason: Per Pain Protocol Last Admin: 08/24/22 21:53 Dose: 5 mg Prednisolone Acetate (Prednisolone 1% Ophth Drops 1ml Bottle) 1 gtt OD DAILY [facility] Last Admin: 08/24/22 12:40 Dose: Not Given Senna (Sennosides 1 Tablet) 2 tab PO HS [facility] Last Admin: 08/24/22 21:54 Dose: 2 tab Sodium Chloride (0.9 % Sodium Chloride 10 Ml Syringe) 10 ml IV Q8 [facility] Last Admin: 08/24/22 23:25 Dose: Not Given Throat Lozenges (Benzocaine/Menthol 1 Lozenge) 1 lozenge PO PRN PRN PRN Reason: Sore Throat A/P Assessment and plan (1) Closed right hip fracture: Assessment and plan: POD 2 s/p operative fixation of right reverse oblique intertrochanteric femur fracture -- 50% weight bearing --PT/OT, --oral pain meds --regular diet --prophy: IS, scd's, lovenox, mobilization --dispo: will need SNF. ok to d/c from ortho standpoint, rx in chart and f/u in discharge as well. Status: Acute Qualifiers: Encounter type: initial encounter Qualified Code(s): S72.001A - Fracture of unspecified part of neck of right femur, initial encounter for closed fracture Time Spent With Patient Time: Total time spent is greater than 50% in coordination of care (as documented) at patient's floor/unit and/or counseling patient:
--- NOTE | 2022-08-25 07:18 | EKG ---
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
[2022-08-25] MEDS: 0.9 % SODIUM CHLORIDE 10 ML SYRINGE IV SCH (07:42)
[2022-08-25] MEDS: METHOCARBAMOL 500 MG TABLET PO PRN (07:43)
[2022-08-25] MEDS: OMEPRAZOLE 20 MG CAPSULE PO SCH (07:43)
[2022-08-25] MEDS: oxyCODONE HCL 5 MG TABLET PO PRN (07:43)
[2022-08-25] MEDS: ALBUTEROL SULFATE 2.5 MG/3 ML NEBULIZER IH SCH (08:13)
[2022-08-25] MEDS: BUDESONIDE 0.5 MG/2 ML AMPUL.NEB NEB SCH (08:13)
[2022-08-25] MEDS: ISOSORBIDE MONONITRATE 30 MG TAB.XL.24H PO SCH (08:30)
[2022-08-25] MEDS: DOCUSATE SODIUM 100 MG CAPSULE PO SCH (08:30)
[2022-08-25] MEDS: ENOXAPARIN 40 MG/0.4 ML SYRINGE SQ SCH (08:30)
[2022-08-25] MEDS: cefTRIAXone 1 GM VIAL IV SCH (08:30)
[2022-08-25] MEDS: METOPROLOL SUCCINATE 25 MG TAB.XL.24H PO SCH (08:30)
[2022-08-25] MEDS: ONDANSETRON 4 MG/2 ML VIAL IV PRN (08:40)
--- NOTE | 2022-08-25 09:12 | Discharge Summary ---
Discharge Provider Provider IMPORTANT FOLLOW-UP INFORMATION FOR PCP: 1. F/u with PCP within 1-2 weeks 2. F/u with ortho clinic Patient information: Note initiated : 08/25/22 at 9:09 am Service Date, if different from initiated Date: [] Patient: Belinda Crum 87 y/o F admitted on 08/23/22 for FALL Right Hip Fracture. Chief Complaint: [Fall] Date of admission: 08/23/22 13:51 Discharge date: 08/25/22 Primary care physician: Gustavo Tinoco Admitting clinician: Alex Horvath Consults: 08/23/22 Consult to Physician [CONS] Stat Comment: Consulting Provider: Alex Horvath Reason For Exam: Physician to Consult Consult to Physician [CONS] Stat Comment: Consulting Provider: Cecelia Stratton Reason For Exam: Physician to Consult COURSE Hospital Course Hospital course: Chief complaint: Mechanical fall History of present illness: Ms. Crum is a 87 year old F with a past medical history significant for CAD, COPD, and osteoporosis who presents to the hospital with a mechanical fall resulting in a mildly communicated cervical fracture of the right hip that was markedly angulated. The patient states that she tripped over some wires at home. She denies any prodromal symptoms. On arrival she was hemodynamically stable and afebrile. Trauma series of imaging was performed. Of note her white blood cell count was elevated at 24,000. Orthopedic surgery were notified. The hospitalist service was asked admit the patient for further management and evaluation. The patient went to the OR per orthopedic surgery without any complication. Her elevated white blood cell count was likely hemoconcentration as there is no evidence of infectious process and urine culture revealed no growth to date. Her white blood count came down to 14,000 with IV fluid resuscitation. She is medically optimized for discharge to senior living facility. Of note, there were episodes of bradycardia at night. The patient's blood pressure has been running on the lower side. Her Lasix and metoprolol will be held postdischarge and can be reevaluated by the primary care physician in 1 to 2 weeks time. Per ortho (1) Closed right hip fracture: Assessment and plan: POD 2 s/p operative fixation of right reverse oblique intertrochanteric femur fracture -- 50% weight bearing --PT/OT Discharge diagnosis: Mechanical fall, right hip fracture Time spent discussing smoking cessation with patient: more than 10 minutes Time Spent with Patient Time attestation: Total time spent providing and/or coordinating discharge services: Time spent: Greater than 30 minutes EXAM Constitutional Vitals: Temp Pulse Resp BP Pulse Ox O2 Del Method O2 Flow Rate 97.9 F 85 20 127/58 95 Nasal Cannula 2 08/25/22 08:00 08/25/22 08:15 08/25/22 08:15 08/25/22 08:00 08/25/22 08:15 08/25/22 08:15 08/25/22 08:15 General appearance: average body habitus Head Head exam: Present atraumatic, normal inspection and normocephalic Eye Eye exam: Present EOMI, normal appearance and PERRL; Absent conjunctival injection ENT ENT exam: Present normal exam; Absent mucous membranes dry Neck Neck exam: Present full ROM; Absent lymphadenopathy Respiratory Respiratory exam: Present normal respiratory exam and CTAB; Absent decreased breath sounds, respiratory distress or wheezes Cardiovascular Cardiovascular exam: Present normal rate and rhythm and RRR; Absent JVD GI/Abdominal GI/Abdominal exam: Present normal bowel sounds and soft; Absent diminished bowel sounds, distended, guarding, mass, rebound or tenderness Neurological Exam Neurological exam: Present alert, CN II-XII intact and oriented X3 Psychiatric Psychiatric exam: Present normal affect and normal mood Skin Skin exam: Present intact and warm; Absent erythema, pallor, petechiae or rash Discharge Data Data Completed and Pending Labs on day of discharge: Preliminary micro results at discharge 08/23/22 18:39 Urine Culture - Preliminary Urine - Le Discharge Plan Patient/Caregiver Discharge Instructions Activity: as instructed Activity Restrictions/Additional Instructions: --50% weight bearing on right lower extremity for 6 weeks, no specifice range of motion restrictions --OK to shower with the dressing over the right hip. OK to remove the dressing over the outside part of the knee to shower and get wet. Replace a dry dressing after shower. No submerging in water such as a bath. No ointments/lotions to the area --Ice as needed to help decrease pain/swelling Prescriptions: New acetaminophen 500 mg Tablet 1,000 mg PO Q8H Qty: 90 0RF docusate sodium 100 mg Capsule 100 mg PO BID Qty: 60 0RF methocarbamol 500 mg Tablet 500 mg PO TIDP PRN (Reason: Muscle Spasm) Qty: 20 0RF enoxaparin 40 mg/0.4 mL Syringe 40 mg SQ DAILY Qty: 32 0RF oxycodone 5 mg Tablet 5 mg PO Q4HP PRN (Reason: Per Pain Protocol) Qty: 50 0RF polyethylene glycol 3350 [Miralax] 17 gram powder in packet 17 g PO QDAY PRN (Reason: constipation) Qty: 14 0RF Continued albuterol sulfate 2.5 MG/3 ML solution for nebulization 2.5 mg IH TID potassium chloride [Klor-Con 10] 10 MEQ tablet extended release 10 meq PO DAILY prednisolone acetate 1 GTT drops,suspension 1 gtt OD DAILY budesonide 0.5 MG/2 ML suspension for nebulization 0.5 mg NEB Q12 omeprazole 20 MG tablet,delayed release (DR/EC) 20 mg PO QAMAC atorvastatin 40 mg Tablet 40 mg PO QHS isosorbide mononitrate 30 mg tablet extended release 24 hr 30 mg PO QDAY alendronate 70 mg Tablet 70 mg PO WEEKLY nitroglycerin 0.4 mg tablet, sublingual 0.4 mg sublingual Q5M PRN (Reason: angina) ipratropium bromide 42 mcg (0.06 %) spray,non-aerosol 2 spray intranasal TID Discontinued furosemide [Lasix] 20 MG tablet 20 mg PO DAILY metoprolol succinate 25 mg tablet extended release 24 hr 25 mg PO BID Follow Up Plan Follow up with: Cecelia Stratton MD [Physician] - 09/06/22 12:50 pm Gustavo Tinoco DO [Primary Care Provider] - Patient Disposition: Xfer SNF Prognosis: Fair Rehab Potential: Good I certify that the patient requires SNF services: Yes Overall status at discharge: patient is progressing back to baseline Discharge Orders: Discharge Order (Routine); Ordered 08/25/22 Ordered By: Alex GUTIERREZ VTE Deep Vein Thrombosis/Pulmonary Embolism Present on Admission: No
[2022-08-25] MEDS ORDERED: prednisoLONE 1% OPHTH DROPS 1ML BOTTLE OD SCH (21:00)
[2022-08-27] MEDS ORDERED: ALENDRONATE SODIUM 70 MG TABLET PO SCH (07:30)
--- NOTE | 2022-08-27 08:12 | EKG ---
[facility] Test Date: 2022-08-24 Pat Name: Belinda Crum Department: 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
== END 2022-08-25 11:25 | DRG 482 ==
LOC: ED 06:41 → MEDSUR 13:51
PROVIDERS: ADMIT Student in an Organized Health Care Education/Training Program; ATTEND Student in an Organized Health Care Education/Training Program